=== PATIENT | female | born 2005 | race Native Hawaiian/Other Pacific Islander ===

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

== ENCOUNTER 2023-01-07 08:16 | Emergency (ER) | payer BC, OTHER ==
[~2023-01-07] VITALS: Ht 172.7 cm; Wt 49.9 kg
[2023-01-07 10:20] VITALS: BP 111/78; TEMP 97.1
== END 2023-01-07 10:30 | disposition home or self-care (01) ==
LOC: ED 08:16
DX: F12.10 Cannabis abuse, uncomplicated (principal)
CPT/HCPCS: 80307; 81000; 81025; 96360; 96372; 99284; J2550